=== PATIENT | female | born 1945 | race Caucasian/White ===

== ENCOUNTER 2018-01-01 11:41 | Day surgery (SDC) | payer MEDICARE, OTHER ==
[~2018-01-01] VITALS: Ht 160 cm; Wt 59.9 kg
[2018-01-01] MEDS ORDERED: LOSA25 (12:19)
[2018-01-01] MEDS ORDERED: FAMO20 (12:19)
[2018-01-01] MEDS ORDERED: Levothyroxine200 MCG (12:20)
[2018-01-01] MEDS ORDERED: ATOR40TA (12:20)
[2018-01-01] MEDS ORDERED: JARDIANCE10 MG (12:20)
[2018-01-01] MEDS ORDERED: METF500C (12:21)
== END 2018-01-01 13:48 | disposition home or self-care (01) ==
LOC: ORSCSDS 11:41
PROVIDERS: Internal Medicine Gastroenterology
PROC: 0DJD8ZZ Inspection of Lower Intestinal Tract, Via Natural or Artificial Opening Endoscopic (ICD-10-PCS; principal; 2018-01-01 13:00)
DX: Z12.11 Encounter for screening for malignant neoplasm of colon (principal); Z80.0 Family history of malignant neoplasm of digestive organs; K38.1 Appendicular concretions; E78.00 Pure hypercholesterolemia, unspecified; E11.9 Type 2 diabetes mellitus without complications; I10 Essential (primary) hypertension; E03.9 Hypothyroidism, unspecified; K21.9 Gastro-esophageal reflux disease without esophagitis; K64.8 Other hemorrhoids; K57.30 Diverticulosis of large intestine without perforation or abscess without bleeding; Z79.84 Long term (current) use of oral hypoglycemic drugs; Z79.899 Other long term (current) drug therapy
CPT/HCPCS: 82947; J7120

== ENCOUNTER → 2021-07-27 | Outpatient (CLI) | payer MEDICARE, OTHER ==
[~2021-07-27] MED LIST: ATOR40TA; FAMO20; JARDIANCE10 MG; LOSA25; Levothyroxine200 MCG; METF500C
[2021-07-28 10:11] LABS: Candida species (DNA Probe) Negative (NEGATIVE); G. vaginalis (DNA Probe) Negative (NEGATIVE); T. vaginalis (DNA Probe) Negative (NEGATIVE)
== END | disposition home or self-care (01) ==
LOC: LAB SHORT 17:51
PROVIDERS: Obstetrics & Gynecology
DX: N76.0 Acute vaginitis (principal)
CPT/HCPCS: 87480; 87510; 87660

== ENCOUNTER → 2022-08-16 | Outpatient (CLI) | payer MEDICARE, OTHER ==
[2022-08-16 14:35] LABS: Candida species (DNA Probe) Negative (NEGATIVE); G. vaginalis (DNA Probe) Negative (NEGATIVE); T. vaginalis (DNA Probe) Negative (NEGATIVE)
== END | disposition home or self-care (01) ==
LOC: LAB 10:52 → LAB SHORT 10:52
PROVIDERS: Obstetrics & Gynecology
DX: N76.0 Acute vaginitis (principal)
CPT/HCPCS: 87480; 87510; 87660

== ENCOUNTER 2023-01-13 10:05 | Emergency (ER) | payer MEDICARE, OTHER ==
[~2023-01-13] VITALS: Ht 160 cm; Wt 59.9 kg
[2023-01-13 10:44] VITALS: BP 129/63
== END 2023-01-13 12:37 | disposition home or self-care (01) ==
LOC: ER 10:05
DX: S76.901A Unspecified injury of unspecified muscles, fascia and tendons at thigh level, right thigh, initial encounter (principal); X58.XXXA Exposure to other specified factors, initial encounter; Z88.8 Allergy status to other drugs, medicaments and biological substances; Z79.899 Other long term (current) drug therapy; Z79.84 Long term (current) use of oral hypoglycemic drugs
CPT/HCPCS: 73562-RT; 76882; 99283-25

== ENCOUNTER → 2023-10-09 | Outpatient (CLI) | payer OTHER ==
[2023-10-09 16:07] LABS: Creatinine, Urine Random 22.1 mg/dL (27.00-270.00); Microalb/Creat Ratio UR, Rand 70.136 mg/g (0.000-30.000); Microalbumin, Random Urine 15.5 mg/L (0.000-20.000)
== END ==
LOC: LAB 13:43 → LAB SHORT 13:43
PROVIDERS: Student in an Organized Health Care Education/Training Program
DX: E11.65 Type 2 diabetes mellitus with hyperglycemia (principal)
CPT/HCPCS: 82043; 82570